=== PATIENT | female | born 1980 | race Caucasian/White ===

== ENCOUNTER 2019-01-01 16:27 | Emergency (ER) | payer BC ==
[2019-01-01] MEDS ORDERED: LIDOCAINE VISCOUS 2% 15 ML CUP MUCOUS MEM ONE (17:01)
[2019-01-01] MEDS ORDERED: valACYclovir 500 MG TAB PO STA (17:03)
--- NOTE | 2019-01-01 17:17 | ED ---
ENT HPI - General Chief complaint: ENT Stated complaint: Poss Flu, fever Time Seen by Provider: 01/01/19 16:52 Source: patient, RN notes reviewed Mode of arrival: ambulatory Limitations: no limitations - History of Present Illness Initial comments: 38-year-old female presents emergency Department with complaints of sore throat, fever bodyaches congestion. Patient states she saw her primary care physician for this and was told that she may have influenza though she tested negative 2. Patient have strep swab which was negative. Patient was discharged on Tamiflu. Patient states she has a mild cough which is nonproductive no shortness breath. Patient states that she's having worsening sores in her lips and mouth region. Patient states that they told her that these were discontinued disorders. Patient states are more painful than she's never had before patient denies any difficulty swallowing. - Related Data Home Medications Medication Instructions Recorded Confirmed Cpm/PE/Dm/Acetaminophen/Guaifn 2 tab PO BID 01/01/19 01/01/19 [Tylenol Cold-Flu Day-Nt Caplet] Ibuprofen [Motrin Ib] 600 mg PO Q6H 01/01/19 01/01/19 Oseltamivir [Tamiflu] 75 mg PO BID 01/01/19 01/01/19 Previous Rx's Medication Instructions Recorded Azithromycin [Zithromax Z-pack] 0 mg PO DIRECTED #1 pack 01/01/19 Lidocaine Viscous 2% [Xylocaine 10 ml MUCOUS MEM Q4HR PRN #200 ml 01/01/19 Viscous] valACYclovir HCL [Valtrex] 1,000 mg PO BID #14 tab 01/01/19 Allergies Allergy/AdvReac Type Severity Reaction Status Date / Time No Known Allergies Allergy Verified 01/01/19 16:49 Review of Systems ROS Statement: Those systems with pertinent positive or pertinent negative responses have been documented in the HPI. ROS Other: All systems not noted in ROS Statement are negative. Past Medical History Past Medical History: No Reported History Additional Past Medical History / Comment(s): IRREGULAR PERIODS History of Any Multi-Drug Resistant Organisms: None Reported Past Surgical History: Back Surgery, Section Additional Past Surgical History / Comment(s): BUNECTOMY RT FOOT 2000 Past Anesthesia/Blood Transfusion Reactions: No Reported Reaction Past Psychological History: Anxiety Smoking Status: Never smoker - Past Family History Mother Family Medical History: No Reported History Father Family Medical History: Coronary Artery Disease (CAD), Diabetes Mellitus, Hypertension General Exam Limitations: no limitations General appearance: alert, in no apparent distress Head exam: Present: atraumatic, normocephalic, normal inspection Eye exam: Present: normal appearance, PERRL, EOMI. Absent: scleral icterus, conjunctival injection, periorbital swelling ENT exam: Present: mucous membranes moist, TM's normal bilaterally, normal external ear exam. Absent: normal exam, normal oropharynx ((Erythematous ulcers, sores noted on the lips, vehicle mucosa, tonsils are edematous, erythematous with exudate) Neck exam: Present: normal inspection, full ROM, lymphadenopathy. Absent: tenderness, meningismus Respiratory exam: Present: normal lung sounds bilaterally. Absent: respiratory distress, wheezes, rales, rhonchi, stridor Cardiovascular Exam: Present: regular rate (Patient was tachycardic on triage secondary to anxiety though her rate on exam was 86.), normal rhythm, normal heart sounds. Absent: systolic murmur, diastolic murmur, rubs, gallop, clicks GI/Abdominal exam: Present: soft, normal bowel sounds. Absent: distended, tenderness, guarding, rebound, rigid Course Vital Signs 01/01/19 01/01/19 16:46 17:43 Temperature 98.9 F 99.2 F Pulse Rate 120 H 114 H Respiratory 16 18 Rate Blood Pressure 123/80 O2 Sat by Pulse 96 99 Oximetry Medical Decision Making - Medical Decision Making 38 show female presented for sores in her mouth, sore throat, generalized not feeling well. Patient lab work which is essentially unremarkable. Negative strep, negative heterophile. I still feel this may be some underlying tonsillitis, strep pharyngitis. Patient will be given azithromycin. Patient also has noted cold sores and be given Valtrex. As is a primary outbreak. Patient received plan return parameters were discussed. - Lab Data Result diagrams: 01/01/19 17:21 01/01/19 17:21 Lab Results 01/01/19 01/01/19 01/01/19 Range/Units 17:21 17:21 17:21 WBC 12.4 H (3.8-10.6) k/uL RBC 4.68 (3.80-5.40) m/uL Hgb 13.8 (11.4-16.0) gm/dL Hct 42.3 (34.0-46.0) % MCV 90.4 (80.0-100.0) fL MCH 29.4 (25.0-35.0) pg MCHC 32.5 (31.0-37.0) g/dL RDW 12.6 (11.5-15.5) % Plt Count 254 (150-450) k/uL Neutrophils % 79 % Lymphocytes % 15 % Monocytes % 4 % Eosinophils % 1 % Basophils % 0 % Neutrophils # 9.8 H (1.3-7.7) k/uL Lymphocytes # 1.8 (1.0-4.8) k/uL Monocytes # 0.5 (0-1.0) k/uL Eosinophils # 0.1 (0-0.7) k/uL Basophils # 0.0 (0-0.2) k/uL Sodium 140 (137-145) mmol/L Potassium 3.5 (3.5-5.1) mmol/L Chloride 103 (98-107) mmol/L Carbon Dioxide 25 (22-30) mmol/L Anion Gap 12 mmol/L BUN 7 (7-17) mg/dL Creatinine 0.63 (0.52-1.04) mg/dL Est GFR (CKD-EPI)AfAm >90 (>60 ml/min/1.73 sqM) Est GFR (CKD-EPI)NonAf >90 (>60 ml/min/1.73 sqM) Glucose 119 H (74-99) mg/dL Calcium 9.1 (8.4-10.2) mg/dL Total Bilirubin 0.4 (0.2-1.3) mg/dL AST 41 H (14-36) U/L ALT 46 (9-52) U/L Alkaline Phosphatase 116 (38-126) U/L Total Protein 7.4 (6.3-8.2) g/dL Albumin 4.0 (3.5-5.0) g/dL Heterophile Antibody Negative (Negative) Group A Strep Rapid (Negative) 01/01/19 Range/Units 17:30 WBC (3.8-10.6) k/uL RBC (3.80-5.40) m/uL Hgb (11.4-16.0) gm/dL Hct (34.0-46.0) % MCV (80.0-100.0) fL MCH (25.0-35.0) pg MCHC (31.0-37.0) g/dL RDW (11.5-15.5) % Plt Count (150-450) k/uL Neutrophils % % Lymphocytes % % Monocytes % % Eosinophils % % Basophils % % Neutrophils # (1.3-7.7) k/uL Lymphocytes # (1.0-4.8) k/uL Monocytes # (0-1.0) k/uL Eosinophils # (0-0.7) k/uL Basophils # (0-0.2) k/uL Sodium (137-145) mmol/L Potassium (3.5-5.1) mmol/L Chloride (98-107) mmol/L Carbon Dioxide (22-30) mmol/L Anion Gap mmol/L BUN (7-17) mg/dL Creatinine (0.52-1.04) mg/dL Est GFR (CKD-EPI)AfAm (>60 ml/min/1.73 sqM) Est GFR (CKD-EPI)NonAf (>60 ml/min/1.73 sqM) Glucose (74-99) mg/dL Calcium (8.4-10.2) mg/dL Total Bilirubin (0.2-1.3) mg/dL AST (14-36) U/L ALT (9-52) U/L Alkaline Phosphatase (38-126) U/L Total Protein (6.3-8.2) g/dL Albumin (3.5-5.0) g/dL Heterophile Antibody (Negative) Group A Strep Rapid Negative (Negative) Disposition Clinical Impression: Pharyngitis, Tonsillitis, Oral herpes simplex infection Disposition: HOME SELF-CARE Condition: Stable Instructions (If sedation given, give patient instructions): Pharyngitis (ED) Additional Instructions: Please return to the Emergency Department if symptoms worsen or any other concerns. Prescriptions: valACYclovir HCL [Valtrex] 1,000 mg PO BID #14 tab Lidocaine Viscous 2% [Xylocaine Viscous] 10 ml MUCOUS MEM Q4HR PRN #200 ml PRN Reason: Pain Azithromycin [Zithromax Z-pack] 0 mg PO DIRECTED #1 pack Is patient prescribed a controlled substance at d/c from ED?: No Referrals: Lane Mario DO [Primary Care Provider] - 1-2 days Time of Disposition: 18:45
[2019-01-01 17:43] VITALS: RESP 18
[2019-01-01 17:46] LABS: Basophils % (A) 0 %; Eosinophils # (A) 0.1 k/uL (0-0.7); Eosinophils % (A) 1 %; HCT 42.3 % (34.0-46.0); HGB 13.8 gm/dL (11.4-16.0); Lymphocytes # (A) 1.8 k/uL (1.0-4.8); Lymphocytes % (A) 15 %; MCH 29.4 pg (25.0-35.0); MCHC 32.5 g/dL (31.0-37.0); MCV 90.4 fL (80.0-100.0); Mean Platelet Volume 7.1; Monocytes # (A) 0.5 k/uL (0-1.0); Monocytes % (A) 4 %; Neutrophils # (A) 9.8 k/uL (1.3-7.7); Neutrophils % (A) 79 %; Platelet Count 254 k/uL (150-450); RBC 4.68 m/uL (3.80-5.40); RDW 12.6 % (11.5-15.5); WBC 12.4 k/uL (3.8-10.6)
[2019-01-01 17:57] LABS: ALT 46 U/L (9-52); AST 41 U/L (14-36); Alkaline Phosphatase 116 U/L (38-126); Anion Gap 12 mmol/L; Blood Urea Nitrogen 7 mg/dL (7-17); Calcium 9.1 mg/dL (8.4-10.2); Carbon Dioxide 25 mmol/L (22-30); Chloride 103 mmol/L (98-107); Glucose 119 mg/dL (74-99); Potassium 3.5 mmol/L (3.5-5.1); Sodium 140 mmol/L (137-145); Total Bilirubin 0.4 mg/dL (0.2-1.3); Total Protein 7.4 g/dL (6.3-8.2)
[2019-01-01 19:19] VITALS: BP 121/79; PULSE 112; TEMP 99.4
== END 2019-01-01 19:19 | disposition home or self-care (01) ==
LOC: EC 16:27
DX: B00.2 Herpesviral gingivostomatitis and pharyngotonsillitis (principal); R00.0 Tachycardia, unspecified; Z79.1 Long term (current) use of non-steroidal anti-inflammatories (NSAID); Z79.891 Long term (current) use of opiate analgesic; Z79.899 Other long term (current) drug therapy
CPT/HCPCS: 36415; 80053; 85025; 86308; 87081; 87430; 99283

== ENCOUNTER → 2020-07-19 | Outpatient (CLI) | payer BC ==
--- NOTE | 2020-07-22 07:46 | US ---
EXAMINATION TYPE: US venous doppler duplex LE LT DATE OF EXAM: 07/19/2020 2:31 PM COMPARISON: NONE CLINICAL HISTORY: LLE Localized swelling, mass or lump R22.42. Pt states left calf pain SIDE PERFORMED: Left TECHNIQUE: The lower extremity deep venous system is examined utilizing real time linear array sonog neil with graded compression, doppler sonography and color-flow sonography. VESSELS IMAGED: External Iliac Vein (EIV) Common Femoral Vein Deep Femoral Vein Greater Saphenous Vein * Femoral Vein Popliteal Vein Small Saphenous Vein * Proximal Calf Veins (* superficial vessels) Left Leg: Negative for DVT IMPRESSION: No evidence for DVT at this time.
== END | disposition home or self-care (01) ==
LOC: RADUSWWP 14:15
PROVIDERS: ATTEND Family Medicine
DX: R22.42 Localized swelling, mass and lump, left lower limb (principal)

== ENCOUNTER → 2022-09-21 | Outpatient (CLI) | payer BC ==
--- NOTE | 2022-09-21 14:36 | CT ---
EXAMINATION TYPE: CT abdomen pelvis w con CT DLP: 1171 mGycm, Automated exposure control for dose reduction was used. DATE OF EXAM: 09/21/2022 2:21 PM COMPARISON: None. CLINICAL INDICATION:Female, 42 years old with history of R10.31 RLQ pain; RLQ pain x5 days TECHNIQUE: Axial CT of the abdomen and pelvis. Sagittal and coronal reformats were created on a [employer] workstation. Contrast used:70 mL of Isovue 300 with IV Contrast, Oral contrast used: without Oral Contrast FINDINGS: LOWER CHEST: Unremarkable ABDOMEN LIVER: Unremarkable GALLBLADDER AND BILE DUCTS: Unremarkable. PANCREAS: Unremarkable. SPLEEN: Unremarkable. ADRENAL GLANDS: Unremarkable. KIDNEYS AND URETERS: No evidence of hydronephrosis or renal calculus. The ureters are unremarkable. PELVIS BLADDER: Unremarkable REPRODUCTIVE: Hyperemia within the uterine fundus around the cystic structure. Surgical clips are see n near the left ovary. ABDOMEN & PELVIS STOMACH AND BOWEL: No evidence of bowel obstruction. The appendix is visualized and within normal erwin its PERITONEUM: Trace fluid is seen within the pelvis, no evidence of pneumoperitoneum. VASCULATURE: No evidence of aortic aneurysm. MUSCULOSKELETAL: No acute osseous abnormalities LYMPH NODES: No gross evidence for lymphadenopathy. SOFT TISSUE/ABDOMINAL WALL: Fat-containing umbilical hernia. IMPRESSION: 1. No definitive evidence for acute abdominal process. The appendix is within normal limits. No hydr onephrosis or obstructive uropathy. 2. Hyperemic uterine fundus endometrium correlate with menstrual cycle. Consider pelvic ultrasound f or further evaluation of the uterus and ovaries.
== END | disposition home or self-care (01) ==
LOC: RADCTMAIN 12:29
PROVIDERS: ATTEND Family Medicine
DX: R10.31 Right lower quadrant pain (principal); N85.8 Other specified noninflammatory disorders of uterus
CPT/HCPCS: 74177; Q9967

== ENCOUNTER → 2022-09-24 | Outpatient (CLI) | payer BC ==
--- NOTE | 2022-09-24 14:27 | US ---
EXAMINATION TYPE: US pelvic complete DATE OF EXAM: 09/24/2022 COMPARISON: NONE CLINICAL HISTORY: 42-year-old female R10.31 RLQ PAIN. RLQ pain for 8 days, h/o ablation 2012, no cycl es, had recent CT TECHNIQUE: TA. Transabdominal sonographic images of the pelvis were acquired. TV not an option tod ay, patient became lightheaded with Lt flank pain during exam, stopped exam and once patient was feel ing better she was able to void and safety leave to go home. Date of LMP: 2012 FINDINGS: EXAM MEASUREMENTS: Uterus: 8.4 x 4.7 x 3.6 cm Endometrial Stripe: not discernable - previous ablation Right Ovary: 2.6 x 2.3 x 2.2 cm Left Ovary: 3.4 x 2.3 x 2.9 cm 1. Uterus: Anteverted and otherwise wnl 2. Endometrium: not discernable 3. Right Ovary: simple appearing cyst = 1.8 x 2.3 x 1.1cm 4. Left Ovary: simple appearing cyst = 2.5 x 1.8 x 1.8cm 5. Bilateral Adnexa: wnl 6. Posterior cul-de-sac: wnl Cost And Risk Analysis Manager notes:*had to stop exam due to patient not feeling well on the table IMPRESSION: A dominant follicle or functional cyst within either ovary measuring up to 2.5 cm. Unable to clearly discern the endometrial stripe, likely as a result of patient's previous endometrial ablation. The pa tient became lightheaded and began experiencing abdominal pain during the exam and transvaginal scann ing could not be performed.
== END | disposition home or self-care (01) ==
LOC: RADUSWWP 09:32
PROVIDERS: ATTEND Family Medicine
DX: R10.31 Right lower quadrant pain (principal); R42 Dizziness and giddiness
CPT/HCPCS: 76856

== ENCOUNTER → 2022-11-02 | Outpatient (CLI) | payer BC ==
--- NOTE | 2022-11-03 09:04 | MM ---
Reason for Exam: Screening (asymptomatic). Baseline mammogram. Patient History: Menarche at age 13. First Full-Term at age 31. Last menstrual period: Risk Values: Harleen 5 year model risk: 0.7%. NCI Lifetime model risk: 12.1%. Prior Study Comparison: Patient's first Mammogram. Tissue Density: The breast tissue is heterogeneously dense. This may lower the sensitivity of mammography. Findings: Analyzed By CAD. There is no suspicious group of microcalcifications in either breast. Benign round calcifications within both breasts. No suspicious mass within the right breast. Asymmetry within the left breast on the cc view just lateral of center at anterior to middle depth. Overall Assessment: Incomplete: need additional imaging evaluation, BI-RAD 0 Management: Diagnostic Mammogram of the left breast. A clinical breast exam by your physician is recommended on an annual basis and results should be correlated with mammographic findings. [facility] will attempt to contact patient to return for supplemental views and ultrasound if indicated. Electronically signed and approved by: Bebeto Perez D.O.
== END | disposition home or self-care (01) ==
LOC: RADMAMWWP 09:05
PROVIDERS: ATTEND Obstetrics & Gynecology
DX: Z12.31 Encounter for screening mammogram for malignant neoplasm of breast (principal)
CPT/HCPCS: 77063; 77067

== ENCOUNTER → 2022-11-04 | Outpatient (CLI) | payer BC ==
--- NOTE | 2022-11-04 11:04 | MM ---
Reason for Exam: Additional evaluation requested from abnormal screening. Last screening mammogram was performed less than 1 month ago. Patient History: Menarche at age 13. First Full-Term at age 31. Risk Values: Harleen 5 year model risk: 0.7%. NCI Lifetime model risk: 12.1%. Prior Study Comparison: 11/02/2022 Bilateral MG 3D screening mammo w/cad, [facility]. Tissue Density: Left: The breast tissue is heterogeneously dense. This may lower the sensitivity of mammography. Findings: Analyzed By CAD. Focal asymmetry within the left breast remains in the lateral aspect 4.8 cm from nipple measuring depth measuring 10 mm in the upper quadrant. Focal asymmetry within the left breast remains in the upper outer aspect 4.8 cm from nipple middle depth measuring 10 mm. Overall Assessment: Incomplete: need additional imaging evaluation, BI-RAD 0 Management: Diagnostic Breast Ultrasound of the left breast. A clinical breast exam by your physician is recommended on an annual basis and results should be correlated with mammographic findings. This exam should not preclude additional follow-up of suspicious palpable abnormalities. Results were given to the patient verbally at the time of exam. Electronically signed and approved by: Sal Bryson DO
--- NOTE | 2022-11-04 12:13 | USB ---
Reason for Exam: Additional evaluation requested from abnormal screening. Patient History: Menarche at age 13. First Full-Term at age 31. Risk Values: Harleen 5 year model risk: 0.7%. NCI Lifetime model risk: 12.1%. Technique: Method: Targeted. Patient Position: Supine. Prior Study Comparison: 11/02/2022 Bilateral MG 3D screening mammo w/cad, [facility]. Findings: The upper outer quadrant of the left breast, the axilla of the left breast and the retroareolar of the left breast were scanned. Left breast 1200 5CFN there is a [id number] solid mass with vascularity. Overall Assessment: Suspicious, BI-RAD 4 Management: Ultrasound-Guided Core Biopsy Electronically signed and approved by: Sal Bryson DO
== END | disposition home or self-care (01) ==
LOC: RADMAMWWP 10:18
PROVIDERS: ATTEND Obstetrics & Gynecology
DX: R92.8 Other abnormal and inconclusive findings on diagnostic imaging of breast (principal)
CPT/HCPCS: 77061; 77065

== ENCOUNTER → 2023-05-27 | Outpatient (CLI) | payer BC ==
[2023-05-27 13:44] VITALS: BP 124/81; PULSE 81; RESP 16; TEMP 98.1
== END ==
LOC: WWCWWP 13:04
PROVIDERS: ATTEND Surgery
DX: Z53.9 Procedure and treatment not carried out, unspecified reason (principal)

== ENCOUNTER → 2023-05-27 | Outpatient (CLI) | payer BC ==
--- NOTE | 2023-05-27 13:30 | MM ---
Reason for Exam: Follow-up at short interval from prior study. Last screening mammogram was performed 7 month(s) ago. Patient History: Menarche at age 13. First Full-Term at age 31. Premenopausal. 11/18/2022, Benign US biopsy breast VAD LT on the left side. Risk Values: Harleen 5 year model risk: 1.2%. NCI Lifetime model risk: 14.6%. Tissue Density: The breast tissue is heterogeneously dense. This may lower the sensitivity of mammography. Findings: Analyzed By CAD. Stable biopsy focal asymmetry with left breast with associated biopsy clip. Reported as a fibroadenoma. No new suspicious masses. Benign calcifications within the left breast. No suspicious group of microcalcifications within the left breast. Overall Assessment: Benign, BI-RAD 2 Management: Screening Mammogram of both breasts in 6 months. A clinical breast exam by your physician is recommended on an annual basis and results should be correlated with mammographic findings. This exam should not preclude additional follow-up of suspicious palpable abnormalities. Results were given to the patient verbally at the time of exam. Note on Harleen scores and lifetime risk: 1. A Harleen score greater than 3% is considered moderate risk. If this is the case, consider specialist referral to assess eligibility for a risk reducing agent. If overall lifetime risk for the development of breast cancer is 20% or higher, the patient may qualify for future screening with alternating mammogram and breast MRI. Electronically signed and approved by: Bebeto Perez D.O.
--- NOTE | 2023-05-27 14:15 | P.PN ---
Subjective Progress Note Date: 05/27/23 Principal diagnosis: Stable fibroadenoma left breast Ligia is a 42-year-old white female seen in consultation for Dr. Lopez regarding a left breast biopsy proven fibroadenoma. She had a bilateral screening mammogram on Wednesday which revealed an area of concern in the left breast. This led to further workup including a left breast diagnostic mammogram and ultrasound. This ultimately led to a left breast ultrasound- guided core biopsy on 2122 which was consistent with a fibroadenoma. The lesion of concern is 1.1 cm in size. The patient did not feel any lumps masses or nodules of concern prior to this. She's never had any surgery on her breast. She is not complaining of any nipple discharge or skin changes. 05-27-23 left breast ultrasound to follow left breast know fibroadenoma done on 05-27-23 stable BIRAD 2. He has no complaints of any new lumps masses or nodules of concern in either breast. Caffeine: One to 2 cups per day Nicotine: Negative Chocolate: Occasional control pills: From age [age] Family history: Negative Hormonal history: Menarche: 13 , breast fed: Negative, age of first 31 Lungs: Negative Patient has not had a menstrual period since approximately 36 as she had a uterine ablation Surgical history: Uterine ablation 2 C-sections Laminectomy L4-L5 Bunionectomy Apical history: Negative Social history: Nicotine: Negative Alcohol: Negative Drugs: Negative - Constitutional Constitutional: Denies chills, Denies fever - EENT Eyes: denies blurred vision, denies pain Ears: deny: decreased hearing, tinnitus Ears, nose, mouth and throat: Denies headache, Denies sore throat - Breasts Breasts: bilateral: as per HPI - Cardiovascular Cardiovascular: Denies chest pain, Denies shortness of breath - Respiratory Respiratory: Denies cough, Denies 7 - Gastrointestinal Gastrointestinal: Denies abdominal pain, Denies diarrhea, Denies nausea, Denies vomiting - Genitourinary (Female) Genitourinary: Denies dysuria, Denies hematuria - Menstruation Menstruation: Reports as per HPI - Genitourinary (Male) Genitourinary: Denies dysuria, Denies hematuria - Musculoskeletal Musculoskeletal: Reports as per HPI - Integumentary Integumentary: Reports as per HPI - Neurological Neurological: Denies numbness, Denies weakness - Psychiatric Psychiatric: Denies anxiety, Denies depression - Endocrine Endocrine: Denies fatigue, Denies weight change - Hematologic/Lymphatic Comment: none - Allergic/Immunologic Allergic/Immunologic: Reports seasonal allergies Past Medical History Past Medical History: No Reported History Additional Past Medical History / Comment(s): IRREGULAR PERIODS History of Any Multi-Drug Resistant Organisms: None Reported Past Surgical History: Back Surgery, Section, Uterine Ablation Additional Past Surgical History / Comment(s): BUNECTOMY RT FOOT 2000. Rectal fistula repair Past Anesthesia/Blood Transfusion Reactions: No Reported Reaction Past Psychological History: Anxiety Smoking Status: Never smoker Past Alcohol Use History: None Reported Past Drug Use History: None Reported - Past Family History Mother Family Medical History: No Reported History Father Family Medical History: Coronary Artery Disease (CAD), Diabetes Mellitus, Hypertension Medications and Allergies Home Medications Medication Instructions Recorded Confirmed Type No Known Home Medications 11/27/22 11/27/22 History Allergies Allergy/AdvReac Type Severity Reaction Status Date / Time No Known Allergies Allergy Verified 11/27/22 12:24 Objective - Constitutional General appearance: Present: cooperative - EENT Eyes: Present: EOMI ENT: Present: hearing grossly normal - Neck Neck: Present: normal ROM - Respiratory Respiratory: bilateral: CTA - Cardiovascular Rhythm: regular Heart sounds: normal: S1, S2 - Integumentary Integumentary: Present: normal turgor - Musculoskeletal Musculoskeletal: Present: gait normal - Psychiatric Psychiatric: Present: A&O x's 3, appropriate affect, intact judgment & insight - Additional findings Additional findings: Breast Exam: BRA: 38F inspection: Right breast slightly larger than left breast, bilateral grade 2/3 ptosis Palpation: Right breast: Multiple positional exam no dominant masses or nodules of concern Right axilla: No adenopathy of concern Left breast: Multi-positional exam fibrocystic changes no dominant masses or nodules of concern, Left axilla: No adenopathy of concern Assessment and Plan Assessment: Impression: Fibroadenoma left breast asymptomatic Fibrocystic breast changes Plan: Patient to have bilateral mammogram in 6 months with exam Patient follow-up sooner any questions or concerns Cc: Dr. Lopez
== END | disposition home or self-care (01) ==
LOC: RADMAMWWP 12:59
PROVIDERS: ATTEND Surgery
DX: D24.2 Benign neoplasm of left breast (principal); N60.12 Diffuse cystic mastopathy of left breast; R92.8 Other abnormal and inconclusive findings on diagnostic imaging of breast; Z82.49 Family history of ischemic heart disease and other diseases of the circulatory system; Z83.3 Family history of diabetes mellitus
CPT/HCPCS: 77061; 77065

== ENCOUNTER → 2023-11-17 | Outpatient (CLI) | payer BC ==
--- NOTE | 2023-11-17 10:20 | XR ---
EXAMINATION TYPE: XR chest 2V DATE OF EXAM: 11/17/2023 10:06 AM COMPARISON: None TECHNIQUE: XR chest 2V Frontal and lateral views of the chest. CLINICAL INDICATION:Female, 43 years old with history of R059 COUGH; FINDINGS: Lungs/Pleura: There is no evidence of pleural effusion, focal consolidation, or pneumothorax. Pulmonary vascularity: Unremarkable. Heart/mediastinum: Cardiomediastinal silhouette is unremarkable. Musculoskeletal: No acute osseous pathology. IMPRESSION: No acute cardiopulmonary disease/process.
== END | disposition home or self-care (01) ==
LOC: RADXRYALE 09:50
PROVIDERS: ATTEND Physician Assistant Medical
DX: R05.9 Cough, unspecified (principal)
CPT/HCPCS: 71046

== ENCOUNTER → 2023-11-29 | Outpatient (CLI) | payer BC ==
--- NOTE | 2023-11-30 08:42 | MM ---
Reason for Exam: Screening (asymptomatic). Last screening mammogram was performed 6 month(s) ago. Patient History: Menarche at age 13. First Full-Term at age 31. Premenopausal. 11/18/2022, Benign US biopsy breast VAD LT on the left side. Risk Values: Harleen 5 year model risk: 1.2%. NCI Lifetime model risk: 14.6%. Prior Study Comparison: 11/04/2022 Left MG 3D work up w/cad LT, [facility]. 11/18/2022 Left MG diagnostic mammo LT wo CAD., [facility]. 05/27/2023 Bilateral MG 3D diag mammo w/cad LT, [facility]. Tissue Density: The breast tissue is heterogeneously dense. This may lower the sensitivity of mammography. Findings: Analyzed By CAD. Left breast biopsy clip. There is no suspicious group of microcalcifications or new suspicious mass. Overall Assessment: Benign, BI-RAD 2 Management: Screening Mammogram of both breasts in [address] [facility] will attempt to contact patient to return for supplemental views and ultrasound if indicated. Patient should continue monthly self-breast exams. A clinical breast exam by your physician is recommended on an annual basis. This exam should not preclude additional follow-up of suspicious palpable abnormalities. Note on Harleen scores and lifetime risk: 1. A Harleen score greater than 3% is considered moderate risk. If this is the case, consider specialist referral to assess eligibility for a risk reducing agent. 2. If overall lifetime risk for the development of breast cancer is 20% or higher, the patient may qualify for future screening with alternating mammogram and breast MRI. Electronically signed and approved by: Sal Bryson DO
== END | disposition home or self-care (01) ==
LOC: RADMAMWWP 10:56
PROVIDERS: ATTEND Surgery
DX: Z12.31 Encounter for screening mammogram for malignant neoplasm of breast (principal); Z78.0 Asymptomatic menopausal state
CPT/HCPCS: 77063; 77067

== ENCOUNTER → 2023-12-09 | Outpatient (CLI) | payer BC ==
--- NOTE | 2023-12-09 12:00 | P.PN ---
Subjective Progress Note Date: 12/09/23 Stable fibroadenoma left breast Ligia is a 42-year-old white female seen in consultation for Dr. Lopez regarding a left breast biopsy proven fibroadenoma. She had a bilateral screening mammogram on Wednesday which revealed an area of concern in the left breast. This led to further workup including a left breast diagnostic mammogram and ultrasound. This ultimately led to a left breast ultrasound- guided core biopsy on 2122 which was consistent with a fibroadenoma. The lesion of concern is 1.1 cm in size. The patient did not feel any lumps masses or nodules of concern prior to this. She's never had any surgery on her breast. She is not complaining of any nipple discharge or skin changes. 05-27-23 left breast ultrasound to follow left breast know fibroadenoma done on 05-27-23 stable BIRAD 2. He has no complaints of any new lumps masses or nodules of concern in either breast. 12-09-23 Patient status post left breast biopsy proven fibroadenoma 11-18-22. Left breast mammogram was done on 05-27-23 [place]. Bilateral mammogram 11-29-23 stable, BIRAD 2. She is not complaining of any new lumps masses or nodules of concern in either breast. Caffeine: One to 2 cups per day Nicotine: Negative Chocolate: Occasional control pills: From age [age] Family history: Negative Hormonal history: Menarche: 13 , breast fed: Negative, age of first 31 Lungs: Negative Patient has not had a menstrual period since approximately 36 as she had a uterine ablation Surgical history: Uterine ablation 2 C-sections Laminectomy L4-L5 Bunionectomy Apical history: Negative Social history: Nicotine: Negative Alcohol: Negative Drugs: Negative - Constitutional Constitutional: Denies chills, Denies fever - EENT Eyes: denies blurred vision, denies pain Ears: deny: decreased hearing, tinnitus Ears, nose, mouth and throat: Denies headache, Denies sore throat - Breasts Breasts: bilateral: as per HPI - Cardiovascular Cardiovascular: Denies chest pain, Denies shortness of breath - Respiratory Respiratory: Denies cough - Gastrointestinal Gastrointestinal: Denies abdominal pain, Denies diarrhea, Denies nausea, Denies vomiting - Genitourinary (Female) Genitourinary: Denies dysuria, Denies hematuria - Menstruation Menstruation: Reports as per HPI - Genitourinary (Male) Genitourinary: Denies dysuria, Denies hematuria - Musculoskeletal Musculoskeletal: Reports as per HPI - Integumentary Integumentary: Reports as per HPI - Neurological Neurological: Denies numbness, Denies weakness - Psychiatric Psychiatric: Denies anxiety, Denies depression - Endocrine Endocrine: Denies fatigue, Denies weight change - Hematologic/Lymphatic Comment: none - Allergic/Immunologic Allergic/Immunologic: Reports seasonal allergies Past Medical History Past Medical History: No Reported History Additional Past Medical History / Comment(s): IRREGULAR PERIODS History of Any Multi-Drug Resistant Organisms: None Reported Past Surgical History: Back Surgery, Section, Uterine Ablation Additional Past Surgical History / Comment(s): BUNECTOMY RT FOOT 2000. Rectal fistula repair Past Anesthesia/Blood Transfusion Reactions: No Reported Reaction Past Psychological History: Anxiety Smoking Status: Never smoker Past Alcohol Use History: None Reported Past Drug Use History: None Reported - Past Family History Mother Family Medical History: No Reported History Father Family Medical History: Coronary Artery Disease (CAD), Diabetes Mellitus, Hypertension Medications and Allergies Home Medications Medication Instructions Recorded Confirmed Type No Known Home Medications 11/27/22 11/27/22 History Allergies Allergy/AdvReac Type Severity Reaction Status Date / Time No Known Allergies Allergy Verified 11/27/22 12:24 Objective - Vital Signs Vital signs: Vital Signs Temp 98.2 F 12/09/23 11:39 Pulse 82 12/09/23 11:39 Resp 15 12/09/23 11:39 BP 121/80 12/09/23 11:39 Pulse Ox 97 12/09/23 11:39 FiO2 Intake & Output 12/08/23 12/09/23 12/09/23 18:59 06:59 18:59 Weight 81.647 kg - Constitutional General appearance: Present: cooperative - EENT Eyes: Present: EOMI ENT: Present: hearing grossly normal - Neck Neck: Present: normal ROM - Respiratory Respiratory: bilateral: CTA - Cardiovascular Heart sounds: normal: S1, S2 - Integumentary Integumentary: Present: normal turgor - Musculoskeletal Musculoskeletal: Present: gait normal - Psychiatric Psychiatric: Present: A&O x's 3, appropriate affect, intact judgment & insight - Additional findings Additional findings: Breast Exam: BRA: 38F inspection: Right breast slightly larger than left breast, bilateral grade 2/3 ptosis; fungal infection under right breast Palpation: Right breast: Multiple positional exam no dominant masses or nodules of concern Right axilla: No adenopathy of concern Left breast: Multi-positional exam fibrocystic changes no dominant masses or nodules of concern, Left axilla: No adenopathy of concern Assessment and Plan Assessment: Impression: Fibroadenoma left breast asymptomatic Fibrocystic breast changes bilateal mammogram 11-29-23 BIRAD 2 Plan: Patient to have bilateral mammogram in 2024 nystatin cream under right breast Patient follow-up sooner any questions or concerns Cc: Dr. Jessica Silva
[2023-12-09 12:11] VITALS: BP 121/80; PULSE 82; RESP 15; TEMP 98.2
== END ==
LOC: WWCWWP 10:53
PROVIDERS: ATTEND Surgery
DX: R92.8 Other abnormal and inconclusive findings on diagnostic imaging of breast (principal); D24.2 Benign neoplasm of left breast; N60.12 Diffuse cystic mastopathy of left breast; N60.11 Diffuse cystic mastopathy of right breast; F41.9 Anxiety disorder, unspecified